=== PATIENT | female | born 1970 | race African-American/Black ===

== ENCOUNTER 2024-10-07 07:07 | Emergency (ER) | payer SELFPAY ==
[~2024-10-07] VITALS: Ht 175.3 cm; Wt 122.9 kg
--- NOTE | 2024-10-07 07:22 | ED.PDOC ---
Musculoskeletal HPI Comments A 54 year old female presents to the ED c/o left arm pain. Patient states she has been experiencing left elbow pain that radiates down to her left hand. Patient reports her pain is worse with movement. Patient notes she could have slept on her left arm the wrong way, but is not sure. Patient denies fever, SOB, chest pain, abdominal pain, nausea, vomiting, diarrhea, headache, dizziness. No other symptoms or modifying factors reported at this time. Patient is alert and oriented x4 and has a stable gait. Time Seen by MD: 07:14 Reviewed Notes: Nurses Notes, Medications, Allergies Allergies: Coded Allergies: NO KNOWN ALLERGIES (Unverified , 10/07/24) Information Source: Patient Mode of Arrival: Ambulatory Location: Left Extremity Location: Arm, Hand Timing: Days Prehospital treatment: None Severity: Moderate Able to Move Extremity: Yes Bear Weight: Fully Pain: Moderate Mechanism: No Trauma, Spontaneous Circumstances: Spontaneous Onset of Symptoms: Spontaneous Symptoms: Pain DVT Risk Factors: NONE Associated signs and symptoms: Arm pain, Elbow pain, Hand pain Past Medical History PAST MEDICAL HISTORY: DM, High Lipids, HTN Past Medical History (Other): Sleep apnea Surgical History (Other): Left arm surgery [employer] History: No Pertinent [employer]ER History Family History Family History: Reviewed,noncontributory to illness Social History Smoker: Non-Smoker Alcohol: Denies ETOH Use Drugs: Denies Drug Use Lives In: Home Constitutional: denies: chills, diaphoresis, fatigue, fever, malaise, sweats, weakness, others EENTM: denies: blurred vision, double vision, ear bleeding, ear discharge, ear drainage, ear pain, ear ringing, eye pain, eye redness, hearing loss, mouth pain, mouth swelling, nasal discharge, nose bleeding, nose congestion, nose pain, photophobia, tearing, throat pain, throat swelling, voice changes, others Respiratory: denies: cough, hemoptysis, orthopnea, SOB at rest, shortness of breath, SOB with excertion, stridor, wheezing, others Cardiovascular: denies: chest pain, dizzy spells, diaphoresis, Dyspnea on exertion, edema, irregular heart beat, left arm pain, lightheadedness, palpitations, PND, syncope, others Gastrointestinal: denies: abdomen distended, abdominal pain, blood streaked bowels, constipated, diarrhea, dysphagia, difficulty swallowing, hematemesis, melena, nausea, poor appetite, poor fluid intake, rectal bleeding, rectal pain, vomiting, others Genitourinary: denies: abnormal vagina bleeding, burning, dyspareunia, dysuria, flank pain, frequency, hematuria, incontinence, pain, , vagina discharge, urgency, others Neurological: denies: dizziness, fainting, headache, left sided numbness, left sided weakness, numbness, paresthesia, pre-existing deficit, right sided numbness, right sided weakness, seizure, speech problems, tingling, tremors, weakness, others Musculoskeletal: reports: others (Left elbow pain that extends down to left hand); denies: back pain, gout, joint pain, joint swelling, muscle pain, muscle stiffness, neck pain Integumetry: denies: bruises, change in color, change in hair/nails, dryness, laceration, lesions, lumps, rash, wounds, others Allergic/Immunocompromised: denies: Difficulty Healing, Frequent Infections, Hives, Itching, others Hematologic/Lymphatic: denies: anemia, blood clots, easy bleeding, easy bruising, swollen glands, others Endocrine: denies: excessive hunger, excessive sweating, excessive thirst, excessive urination, flushing, intolerance to cold, intolerance to heat, u nexplained weight gain, unexplained weight loss, others Psychiatric: denies: anxiety, bipolar disorder, depression, hopeless, panic disorder, schizophrenia, sleepless, suicidal, others All Other Systems: Reviewed and Negative Physical Exam General Appearance: No Apparent Distress, Normal HEENT: Normal ENT Inspection, Pharynx Normal, TMs Normal Neck: Full Range of Motion, Non-Tender, Normal, Normal Inspection Respiratory: Chest Non-Tender, Lungs Clear, No Accessory Muscle Use, No Respiratory Distress, Normal Breath Sounds Cardiovascular: No Edema, No JVD, No Murmur, No Gallop, Normal Peripheral P ulses, Regular Rate/Rhythm Breast Exam: Deferred Gastrointestinal: No Organomegaly, Non Tender, No Pulsatile Mass, Normal Bowel Sounds, Soft Genitalia: Deferred Pelvic: Deferred Rectal: Deferred Extremities: No calf tenderness, Normal capillary refill, No pedal edema, Tender, Other (Tinel's test negative, Tenderness noted to patient left elbow going sofia to left hand upon palpation and ROM. no swelling, no burtising, no redness) Musculoskeletal : Apperance: Normal Neurologic: Alert, cisco engineer II-XII nml as Tested, No Motor Deficits, Normal Affect, Normal Mood, No Sensory Deficits Cerebellar Function: Normal Reflexes: Normal Skin: Dry, Normal Color, Warm Lymphatic: No Adenopathy Was a procedure done? Was a procedure done?: No Differential Diagnosis EXT Differential Diagnosis: Cellulitis, Deep Vein Thrombosis, Fracture, Sprain, Dislocation, Gout, DJD, Contusion, Strain, Neurovascular injury, Arthritis, Bursitis X-Ray, Labs, Meds, VS Vital Signs Date Time Temp Pulse Resp B/P (MAP) Pulse Ox O2 Delivery O2 Flow Rate FiO2 10/07/24 07:21 97.7 114 18 139/93 (108) 94 97.7 Current Medications Medications (Trade) Dose Ordered Sig/Candice Route Start Time Stop Time Status Last Admin Ketorolac Tromethamine (Toradol Injection) 15 mg ONCE ONCE IM 10/07/24 07:30 10/07/24 07:31 DC 10/07/24 07:43 EXAM: XY L ELBOW 3 VIEW XRAY HISTORY: pain COMPARISON: None TECHNIQUE: Three views of the left elbow were performed. FINDINGS: No acute fracture or effusion are identified about the left elbow. No significant degenerative changes. Soft tissue swelling about the elbow. IMPRESSION: 1. No acute fracture of the left elbow. ATED BY: LUCIE BOSS MD DICTATED DATE/TIME: 10/07/24754 SIGNED BY: LUCIE BOSS MD SIGNED DATE/TIME: 10/07/24754 CC: PROCEDURE: Left wrist radiographs. INDICATION: Pain TECHNIQUE: 3 views of the left wrist were obtained. COMPARISON: None FINDINGS: There is no evidence of fracture or dislocation. Joint spaces are maintained. The soft tissues are unremarkable. IMPRESSION: 1. No fracture or dislocation. ATED BY: LUCIE BOSS MD DICTATED DATE/TIME: 10/07/24753 SIGNED BY: LUCIE BOSS MD SIGNED DATE/TIME: 10/07/24753 CC: X-Ray, Labs, Meds, VS Comment External medical records reviewed: [None] Independent historians: [None] Social determinants of health: [None] Labs ordered: None Reviewed and interpreted results: None Radiology imaging ordered: XR elbow LT, XR wrist LT Treatments ordered: Toradol 15mg IM Procedures performed: None Critical care time: None Based on the history of present illness and physical exam, patient will be discharged home. Discussed plan for discharge home with Rx []. Medications warnings given. Shared decision making: Discussed with patient their workup was normal. Patient instructed to follow up with their primary care physician in 1-2 days for re- evaluation of symptoms. Patient verbalizes understanding to return to ED for new or worsening symptoms of if follow up with PCP cannot be obtained. Patient understands and feels comfortable going home at this time. All questions addressed at time of discharge. Images Reviewed?: Images reviewed and evaluated by me Time of 1ST Reevaluation: 08:15 Reevaluation 1ST: Improved Patient Education/Counseling: Diagnosis, Treatment, Need For Follow Up Family Education/Counseling: Diagnosis, Treatment, Need For Follow Up Additional Information pt has a history of the same pain, and has had surgery of the of the same elbow. she does not have any dvt risk factors and has had no injuries. xrays are negative,. pt is feeling improved. her pain was worsened by ROM and palpation of the the joints. she is stable for discharge with arthritis, arthralgia Departure 1 Departure Time of Disposition: 08:17 Impression: Primary Impression: Arthritis Disposition: 01 HOME / SELF CARE / HOMELESS Condition: Good Additional Instructions: Follow up with PCP in 1-2 days for MRI study. Take medications as prescribed. Return to ED for any new or worsening symptoms. e-Prescriptions Ibuprofen Micronized (MOTRIN TABLET) 600 Mg Tb 600 MG PO TID PRN, #40 TAB *Black box warning-NSAIDS can increase risk of WI & hypertension, GI irritation, ulceration, bleed, perferation. Do not use post cardiac surgery. Use short duration/lowest effective dose. Prov: JOANNE BERUMEN MD 10/07/24 Discharged With: Self Critical Care Note Critical Care Time?: No Stability Stability form required: No I personally scribed for JOANNE BERUMEN MD ([email or web address]) on 10/07/24 at 07:22. Electronically submitted by Donaldo Greenfield ([email or web address]). I personally scribed for JOANNE BERUMEN MD ([email or web address]) on 10/07/24 at 07:22. Electronically submitted by Donaldo Greenfield ([email or web address]). I personally scribed for JOANNE BERUMEN MD ([facility]) on 10/07/24 at 07:31. Electronically submitted by Donaldo Greenfield ([email or web address]). I personally scribed for JOANNE BERUMEN MD ([facility]) on 10/07/24 at 07:50. Electronically submitted by Donaldo Greenfield ([email or web address]). I personally scribed for JOANNE BERUMEN MD ([facility]) on 10/07/24 at 07:59. Electronically submitted by Donaldo Greenfield ([email or web address]). I personally scribed for JOANNE BERUMEN MD ([facility]) on 10/07/24 at 08:00. Electronically submitted by Donaldo Greenfield ([email or web address]). JOANNE BERUMEN MD Oct 07, 2024 07:22
[2024-10-07] MEDS: KETOROLAC TROMETH 30 MG/ML 1ML VIAL IM ONE (07:43)
--- NOTE | 2024-10-07 07:57 | DVH ---
PROCEDURE: Left wrist radiographs. INDICATION: Pain TECHNIQUE: 3 views of the left wrist were obtained. COMPARISON: None FINDINGS: There is no evidence of fracture or dislocation. Joint spaces are maintained. The soft tis sues are unremarkable. IMPRESSION: 1. No fracture or dislocation.
--- NOTE | 2024-10-07 07:58 | DVH ---
EXAM: XY L ELBOW 3 VIEW XRAY HISTORY: pain COMPARISON: None TECHNIQUE: Three views of the left elbow were performed. FINDINGS: No acute fracture or effusion are identified about the left elbow. No significant degenerative change s. Soft tissue swelling about the elbow. IMPRESSION: 1. No acute fracture of the left elbow.
[2024-10-07] MEDS ORDERED: IBU600T PO (08:17)
[2024-10-07 08:27] VITALS: BP 128/84; PULSE 102; RESP 18; TEMP 97.9; O2SAT 96
[2024-10-07] MEDS ORDERED: HYDR-4902 PO (08:27)
== END 2024-10-07 08:26 | disposition home or self-care (01) ==
LOC: ER 07:07
DX: M19.022 Primary osteoarthritis, left elbow (principal); E11.9 Type 2 diabetes mellitus without complications; I10 Essential (primary) hypertension; E78.5 Hyperlipidemia, unspecified; Z98.890 Other specified postprocedural states
CPT/HCPCS: 73080; 73110; 96372; 99284; J1885